=== PATIENT | male | born 1980 | race Caucasian/White ===

== ENCOUNTER 2020-01-27 06:54 | Outpatient (CLI) | payer OTHER ==
[2020-01-27 13:40] LABS: #Eosinphils 0.1 10x3/uL (0.0-0.5); #Monocytes 0.9 10x3/uL (0.0-1.1); #Neutrophils 4.6 10x3/uL (1.5-8.4); %Basophils 0.5 % (0.0-2.0); %Eosinophils 1.5 % (0.0-6.0); %Lymphocytes 33.6 % (18.0-47.0); %Monocytes 10.8 % (0.0-10.0); %Neutrophils 53.4 % (40.0-75.0); Hemoglobin 15.4 g/dL (14.0-18.0); Mean Corpuscular HGB CONC 34.5 G/DL (32.0-36.0); Mean Corpuscular Hemoglobin 29.9 PG (27.0-33.0); Mean Corpuscular Volume 86.6 fl (80.0-100.0); Platelet Count 282 10x3/uL (130-400); RBC Distribution Width 11.9 % (11.5-14.5); Red Blood Cell (RBC) Count 5.15 10x6/uL (4.40-5.80); White Blood Cell (WBC) Count 8.5 10x3/uL (4.5-11.0)
[2020-01-27 14:03] LABS: Anion Gap 16 mmol/L (10-20); BUN (Urea Nitrogen) 10 mg/dL (8.9-20.6); Calc. Creatinine Clearance 0 mL/min (70-130); Calcium 9.6 mg/dL (7.8-10.44); Carbon Dioxide 27 mmol/L (22-29); Chloride 102 mmol/L (98-107); Estimated GFR-MDRD 61; Glucose 87 mg/dL (70-105); Potassium 4.3 mmol/L (3.5-5.1); Sodium 141 mmol/L (136-145)
[2020-01-28 12:09] LABS: SARS-CoV-2 MS2 Positive; SARS-CoV-2 N Gene Negative; SARS-CoV-2 S Gene Negative; SARS-CoV-2 by NAA Not Detected (NotDetected); SARS-CoV-2 orf1ab Negative
== END 2020-01-27 06:55 | disposition home or self-care (01) ==
LOC: LABBT 06:54
PROVIDERS: ATTEND Internal Medicine Cardiovascular Disease
DX: Z01.818 Encounter for other preprocedural examination (principal); I35.0 Nonrheumatic aortic (valve) stenosis; Z20.828 Contact with and (suspected) exposure to other viral communicable diseases
CPT/HCPCS: 80048; 85025; 87635; U0003

== ENCOUNTER 2020-02-10 07:04 | Outpatient (CLI) | payer OTHER ==
[2020-02-10 12:48] LABS: #Basophils 0.1 10x3/uL (0.0-0.2); #Eosinphils 0.1 10x3/uL (0.0-0.5); #Monocytes 0.8 10x3/uL (0.0-1.1); #Neutrophils 5.9 10x3/uL (1.5-8.4); %Basophils 0.5 % (0.0-2.0); %Lymphocytes 25.6 % (18.0-47.0); %Monocytes 8.8 % (0.0-10.0); %Neutrophils 63.8 % (40.0-75.0); Hemoglobin 15.7 g/dL (14.0-18.0); Mean Corpuscular HGB CONC 34.9 G/DL (32.0-36.0); Mean Corpuscular Hemoglobin 29.9 PG (27.0-33.0); Mean Corpuscular Volume 85.7 fl (80.0-100.0); Mean Platelet Volume 9.6 fl (7.4-10.4); Platelet Count 294 10x3/uL (130-400); RBC Distribution Width 11.9 % (11.5-14.5); Red Blood Cell (RBC) Count 5.25 10x6/uL (4.40-5.80); White Blood Cell (WBC) Count 9.3 10x3/uL (4.5-11.0)
[2020-02-10 13:08] LABS: Anion Gap 16 mmol/L (10-20); BUN (Urea Nitrogen) 12 mg/dL (8.9-20.6); Calc. Creatinine Clearance 0 mL/min (70-130); Calcium 9.7 mg/dL (7.8-10.44); Carbon Dioxide 26 mmol/L (22-29); Chloride 103 mmol/L (98-107); Glucose 96 mg/dL (70-105); Potassium 4.6 mmol/L (3.5-5.1); Sodium 140 mmol/L (136-145)
[2020-02-11 09:25] LABS: SARS-CoV-2 MS2 Positive; SARS-CoV-2 N Gene Negative; SARS-CoV-2 S Gene Negative; SARS-CoV-2 by NAA Not Detected (NotDetected); SARS-CoV-2 orf1ab Negative
--- NOTE | 2020-02-14 07:00 | EKG ---
Test Reason : PREOP Blood Pressure : / mmHG Vent. Rate : 061 BPM Atrial Rate : 061 BPM P-R Int : 172 ms QRS Dur : 104 ms QT Int : 412 ms P-R-T Axes : 066 066 078 degrees QTc Int : 414 ms Normal sinus rhythm Incomplete right bundle branch block Borderline ECG No previous ECGs available Confirmed by SANTIAGO JEFFERS MD ([id number] on 02/14/2020 6:59:42 AM Referred By: JORDIN Confirmed By:SANTIAGO JEFFERS MD
== END 2020-02-10 07:05 | disposition home or self-care (01) ==
LOC: LABBT 07:04
PROVIDERS: ATTEND Internal Medicine Cardiovascular Disease
DX: Z01.818 Encounter for other preprocedural examination (principal); I35.1 Nonrheumatic aortic (valve) insufficiency; Z20.828 Contact with and (suspected) exposure to other viral communicable diseases
CPT/HCPCS: 80048; 85025; 87635; 93005; 93010; U0003

== ENCOUNTER 2020-02-13 06:01 | Day surgery (SDC) | payer OTHER ==
[2020-02-12 15:33] VITALS: BMI 27.8
[2020-02-13] MEDS ORDERED: PROPOFOL 20 ML ONE ×2 (07:56→08:06)
--- NOTE | 2020-02-14 09:57 | OP ---
DATE OF PROCEDURE: 02/13/2020 PROCEDURE PERFORMED: Transesophageal echocardiogram. INDICATIONS FOR PROCEDURE: A 39-year-old gentleman with aortic valve disease. DESCRIPTION OF PROCEDURE: The patient was taken to the PACU in stable condition. The patient was sedated by Anesthesiology. A transesophageal probe was placed into the distal esophagus and stomach. Echocardiographic images were obtained. FINDINGS: 1. Normal left ventricular systolic function. 2. Bicuspid aortic valve. 3. [id number] aortic regurgitation. 4. 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 5. Normal tricuspid valve. 6. Mild atherosclerotic debris in the descending aorta. IMPRESSION: Bicuspid aortic valve with [id number] aortic regurgitation. Job ID: [id number]
== END 2020-02-13 09:20 | disposition home or self-care (01) ==
LOC: SDC 06:01
PROVIDERS: ATTEND Internal Medicine Cardiovascular Disease
PROC: B245ZZ4 Ultrasonography of Left Heart, Transesophageal (ICD-10-PCS; principal; 2020-02-13)
DX: I35.1 Nonrheumatic aortic (valve) insufficiency (principal); E78.1 Pure hyperglyceridemia; I10 Essential (primary) hypertension; M10.9 Gout, unspecified; I73.00 Raynaud's syndrome without gangrene; E78.5 Hyperlipidemia, unspecified; Z79.899 Other long term (current) drug therapy
CPT/HCPCS: 93312; J2704

== ENCOUNTER 2020-03-17 07:46 | Outpatient (CLI) | payer OTHER ==
--- NOTE | 2020-03-17 08:57 | CT ---
CT angiogram of the chest, abdomen, and pelvis: 03/17/2020 COMPARISON: None HISTORY: Bicuspid aortic valve TECHNIQUE: Axial CT imaging at 3 mm intervals from the thoracic inlet through the pubic symphysis wit h IV contrast using CT angiogram protocol. Coronal and sagittal 3-D reformatted imaging obtained. FINDINGS: No axillary, hilar, or mediastinal lymphadenopathy. No pleural, pericardial, or mediastinal fluid. Coronary arterial calcification is noted. Motion artifact limits assessment of the proximal aspect of the ascending aorta. There is a bovine arch noted. There is no evidence for aneurysm of the thoracic aorta. The lung parenchyma demonstrates no acute findings on either side. No endobronchial lesion is evident on either side. No free intraperitoneal air or fluid is seen. The liver, gallbladder, spleen, pancreas, adrenal glands, and kidneys demonstrate no acute findings. Limited assessment of the bowel without oral contrast media demonstrates no acute findings. The abdominal aorta demonstrates no evidence for aneurysm or dissection. Origin of the celiac axis, superior mesenteric artery, bilateral renal arteries, and inferior mesente robert artery unremarkable. No abdominal or pelvic lymphadenopathy. Osseous structures of the chest, abdomen, and pelvis demonstrate no acute findings. IMPRESSION: Coronary arterial calcification is noted. No evidence for aneurysm of the abdominal or th oracic aorta.
[2020-03-17] MEDS ORDERED: Iopamidol-370 76% 500 ML 1 ML ONE (13:24)
== END 2020-03-17 07:47 | disposition home or self-care (01) ==
LOC: BICCT 07:46
PROVIDERS: ATTEND Internal Medicine Cardiovascular Disease
DX: Q23.1 Congenital insufficiency of aortic valve (principal); I25.10 Atherosclerotic heart disease of native coronary artery without angina pectoris
CPT/HCPCS: 71275; 74174; Q9967